=== PATIENT | female | born 1980 | race African-American/Black ===

== ENCOUNTER 2016-11-28 18:44 | Emergency (ER) | payer OTHER, MEDICAID ==
[~2016-11-28] VITALS: Ht 162.6 cm; Wt 82.0 kg
[~2016-11-28 18:44] MED LIST: FLAG500T PO; NAPR-576 PO
[2016-11-28 18:46] VITALS: BP 134/75; PULSE 96; RESP 14; TEMP 98.4; O2SAT 98
[2016-11-28] MEDS ORDERED: ACETAMINOPHEN/HYDROcodone 325 MG/5 MG TAB PO ONE (19:30)
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
--- NOTE | 2016-11-28 19:59 | RADRPT ---
EXAM DATE/TIME: 11/28/2016 19:42 [facility] COMPARISON: No previous studies available for comparison. INDICATIONS : Knee pain, NURSING HOME. MEDICAL HISTORY : None. SURGICAL HISTORY : None. ENCOUNTER: Initial ACUITY: 1 day PAIN SCORE: 0/10 LOCATION: Left knee FINDINGS: Four view examination of the left knee demonstrates no evidence of fracture or dislocation. Bony min eralization is normal. The articular surfaces are intact. Soft tissue swelling. The suprapatellar s oft tissues have a normal configuration. CONCLUSION: No acute fracture. Jeremy Carreon MD on November 28, 2016 at 19:57 Board Certified Radiologist. This report was verified electronically.
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
[2016-11-28] MEDS ORDERED: CYCL1TAB29 PO (20:08)
[2016-11-28] MEDS ORDERED: TRAM50TA PO (20:08)
== END 2016-11-28 21:05 | disposition home or self-care (01) ==
LOC: NEPK 18:44
DX: S63.501A Unspecified sprain of right wrist, initial encounter (principal); S80.02XA Contusion of left knee, initial encounter; V49.49XA Driver injured in collision with other motor vehicles in traffic accident, initial encounter; Y92.414 Local residential or business street as the place of occurrence of the external cause
CPT/HCPCS: 73110; 73564; 99284; L3908

== ENCOUNTER → 2016-12-20 | Outpatient (CLI) | payer OTHER, MEDICAID ==
[~2016-12-20] MED LIST changes: +CYCL1TAB29 PO; +DEPO150I IM; -FLAG500T PO; -NAPR-576 PO; +TRAM50TA PO
[2016-12-20 10:56] LABS: AUTOMATED NEUTROPHIL # 2.9 TH/MM3 (1.8-7.7); BASOPHIL % 0.6 % (0.0-2.0); EOSINOPHIL # 0.1 TH/MM3 (0-0.4); EOSINOPHIL % 2.6 % (0.0-4.0); HEMATOCRIT 39.7 % (35.0-46.0); HEMO FLAGS DIFF FINAL; LYMPH % 33.5 % (9.0-44.0); LYMPHOCYTE # 1.7 TH/MM3 (1.0-4.8); MEAN CELL VOLUME 92.1 FL (80.0-100.0); MEAN CORPUSCULAR HGB CONC 33.7 % (32.0-36.0); MONO % 7.2 % (0.0-8.0); NEUT % 56.1 % (16.0-70.0); PLATELET COUNT 288 TH/MM3 (150-450); RED BLOOD COUNT 4.31 MIL/MM3 (4.00-5.30); RED CELL DISTRIBUTION WIDTH 13.2 % (11.6-17.2); WHITE BLOOD COUNT 5.2 TH/MM3 (4.0-11.0)
[2016-12-20 11:16] LABS: BLOOD, URINE SMALL (NEG); COMMENT (UR) CULT NOT INDICATED; CULTURE IF INDICATED CULT NOT INDICATED; GLUCOSE,URINE NEG (NEG); KETONE, URINE NEG (NEG); MUCUS URINE FEW /lpf (OCC); NITRITE,URINE NEG (NEG); URINE COLOR YELLOW (YELLW/STRAW)
[2016-12-20 12:06] LABS: ANION GAP 7 MEQ/L (5-15); BICARBONATE 24.7 MEQ/L (21.0-32.0); BLOOD UREA NITROGEN 11 MG/DL (7-18); CHLORIDE 107 MEQ/L (98-107); GLOMERULAR FILTRATION RATE 85 ML/MIN (>89); GLUCOSE,FASTING 85 MG/DL (74-99); POTASSIUM 4.2 MEQ/L (3.5-5.1); SODIUM (NA) 139 MEQ/L (136-145)
[2016-12-20 12:25] LABS: BHCG SCREEN QUALITATIVE LESS THAN 1 MIU/ML (0-5)
== END ==
LOC: CPRE 09:41
PROVIDERS: ATTEND Obstetrics & Gynecology
DX: Z01.812 Encounter for preprocedural laboratory examination (principal); R10.2 Pelvic and perineal pain; N92.0 Excessive and frequent menstruation with regular cycle
CPT/HCPCS: 36415; 80048; 81001; 84703; 85025

== ENCOUNTER 2016-12-25 06:09 | Observation (INO) | payer OTHER, MEDICAID ==
[~2016-12-25] VITALS: Ht 162.6 cm; Wt 83.7 kg
[2016-12-25] MEDS ORDERED: ceFAZolin 2 GM PREMIX 50 ML ONE (07:04)
[2016-12-25] MEDS ORDERED: ESTROGENS CONJUGATED VAG CREA 15 APPL/30 GM TUBE ONE (07:14)
[2016-12-25] MEDS ORDERED: BUPIVACAINE/EPINEPHRINE 0.25% 50 ML VIAL ONE (07:21)
[2016-12-25] MEDS ORDERED: fentaNYL CITRATE 250 MCG/5 ML AMP ONE (07:30)
[2016-12-25] MEDS ORDERED: ACETAMINOPHEN 1000 MG/100 ML VIAL IV ONE (07:30)
[2016-12-25] MEDS ORDERED: ceFAZolin 2 GM PREMIX 50 ML IV SCH (07:30)
[2016-12-25] MEDS ORDERED: SODIUM CHLORID 0.9% 500 ML IV PRN (07:30)
[2016-12-25] MEDS ORDERED: INSULIN HUMAN REGULAR 1,000 UNITS/10 ML VIAL SQ PRN (07:30)
[2016-12-25] MEDS ORDERED: LACTATED RINGER'S 1000 ML IV PRN (07:30)
[2016-12-25] MEDS ORDERED: HYDROmorphone HCL PF 2 MG/ML VIAL ONE (07:30)
[2016-12-25] MEDS ORDERED: POVIDONE IODINE 5% (ANTISEPSIS KIT) 4 APPLICATIONS EACH NARE PRN (07:30)
[2016-12-25] MEDS ORDERED: CHLORHEXIDINE GLUCONATE 2 % 1 PACK (2 CLOTHS) TOPICAL PRN (07:30)
[2016-12-25] MEDS ORDERED: METOPROLOL TARTRATE 25 MG TAB PO PRN (07:30)
[2016-12-25] MEDS ORDERED: MIDAZOLAM HCL 2 MG/2 ML VIAL ONE (07:30)
[2016-12-25] MEDS ORDERED: ONDANSETRON ODT 4 MG TAB PO PRN (11:15)
[2016-12-25] MEDS ORDERED: ZOLPIDEM TARTRATE 5 MG TAB PO PRN (11:15)
[2016-12-25] MEDS ORDERED: oxyCODONE/ACETAMINOPHEN 5 MG/325 MG TAB PO PRN (11:15)
[2016-12-25] MEDS ORDERED: DO NOT ADM ANY ANTICOAGULANT DRUGS PRN (11:15)
[2016-12-25] MEDS ORDERED: ONDANSETRON HCL 4 MG/2 ML VIAL IVP PRN (11:15)
[2016-12-25] MEDS ORDERED: diphenhydrAMINE HCL 25 MG CAP PO PRN (11:15)
[2016-12-25] MEDS ORDERED: SODIUM CHLORIDE 0.9% FLUSH 10 ML FLUSH IV FLUSH PRN (11:15)
--- NOTE | 2016-12-25 11:23 | HHI.PR ---
Immediate Post Op Note Procedure Date: Dec 25, 2016 Pre Op Diagnosis: (1) Menorrhagia (2) Dysmenorrhea (3) Chronic pelvic pain in female Post Op Diagnosis: (1) Fibroids (2) Pelvic adhesive disease (3) Chronic pelvic pain in female (4) Dysmenorrhea (5) Menorrhagia Surgeon: Maria Esther Polo MD Administrative Support Assistant(s): Renata Domínguez MD Procedure: EUA, LAVH, Bilateral salpingectomy, right oophorectomy, lysis of adhesions. Findings: Adhesion of omentum to anterior abdominal wall. Adhesion of peritoneum superior to bladder to the mid-lower uterine segment. Right round ligament hernia. left fundal intramural fibroid, bulky uterus with appearance of adenomyosis. Enlarged ovaries, appearance of pcos. Bilateral tubes with evidence of prior ligation. Appendix and liver edge normal in appearance. Complications: none Specimen(s) removed: bilateral tubes, right ovary, uterus and cervix Estimated blood loss: 400ml Anesthesia: General Drains: None Fluids: 1500ml IVF Patient to: PACU Patient Condition: Good Maria Esther Polo MD Dec 25, 2016 11:23
[2016-12-25] MEDS: LACTATED RINGER'S 1000 ML INJ 1,000 ML IV SCH (12:00)
[2016-12-25] MEDS ORDERED: NEOSTIGMINE 3 MG/3 ML SYR IV ONE (12:00)
[2016-12-25] MEDS ORDERED: PROPOFOL 200 MG/20 ML AMP IV ONE (12:00)
[2016-12-25] MEDS ORDERED: LACTATED RINGER'S 1000 ML INJ 2,000 ML IV ONE (12:00)
[2016-12-25] MEDS ORDERED: ONDANSETRON HCL 4 MG/2 ML VIAL IV PUSH ONE (12:00)
[2016-12-25] MEDS ORDERED: *HYDROmorphone PF 1 MG VIAL PERIprocedural Use ONLY ONE (12:31)
[2016-12-25] MEDS: KETOROLAC TROMETHAMINE 30 MG/ML (IVP) VIAL IVP SCH ×2 (16:26→20:34)
[2016-12-25] MEDS: DOCUSATE SODIUM 100 MG CAP PO SCH ×2 (16:28→20:33)
[2016-12-25 16:46] VITALS: BP 108/67; PULSE 56; RESP 20; TEMP 95.9; O2SAT 100
[2016-12-25 20:00] VITALS: BP 119/72; PULSE 100; RESP 18; TEMP 96.3; O2SAT 100
[2016-12-25] MEDS: SODIUM CHLORIDE 0.9% FLUSH 10 ML FLUSH IV FLUSH SCH (20:36)
[2016-12-26] VITALS: BP 110/65; PULSE 63; RESP 16; TEMP 98.1; O2SAT 100
[2016-12-26] MEDS: oxyCODONE/ACETAMINOPHEN 5 MG/325 MG TAB PO PRN ×3 (00:27→10:54)
[2016-12-26] MEDS: LACTATED RINGER'S 1000 ML INJ 1,000 ML IV SCH (01:03)
[2016-12-26] MEDS: KETOROLAC TROMETHAMINE 30 MG/ML (IVP) VIAL IVP SCH ×2 (02:04→08:40)
--- NOTE | 2016-12-26 07:12 | MP ---
cc: MARIA ESTHER POLO MD DATE OF SURGERY 12/25/2016 PREOPERATIVE DIAGNOSIS Menorrhagia, dysmenorrhea, likely adenomyosis, dyspareunia. POSTOPERATIVE DIAGNOSIS Menorrhagia, dysmenorrhea, likely adenomyosis, fibroids plus adhesive disease, hernia of right round ligament. PROCEDURE PERFORMED Exam under anesthesia, laparoscopically-assisted vaginal hysterectomy, bilateral salpingectomy, right oophorectomy, lysis of adhesions. SURGEON Maria Esther Polo MD DROP WIRER Renata Domínguez MD ANESTHESIA General ESTIMATED BLOOD LOSS 400 mL IV FLUIDS 200 mL of lactated Ringer's URINE OUTPUT 500 mL PROPHYLACTIC ANTIBIOTICS 2 grams IV given incision. DVT PROPHYLAXIS SCD's to bilateral extremities INTRAOPERATIVE FINDINGS Adhesions of omentum to the anterior abdominal wall, adhesions of peritoneum superior to bladder to mid lower uterine segment, hernia of the right round ligamet; uterus appearace of adenomyosis as it was bulky and a left fundal subserosal fibroid, bilateral ovaries enlarge with the appearance of PCOS, bilateral tubes with evidence of prior salpingectomy. Appendix and liver edge appeared within normal limits. SPECIMENS Bilateral tubes, right ovary, uterus, and cervix. DISPOSITION The patient sent to PACU in stable condition. COMPLICATIONS None COUNTS Correct x3 PROCEDURE IN DETAIL After reviewing informed consent, the patient was taken to the operating room where general anesthesia was administered without complication. The patient was placed in the dorsal lithotomy position in [facility][note 3]y cane stirrups. The abdomen and perineum were prepped and draped in a normal sterile fashion. Exam under anesthesia was performed. The uterus was approximately 9 cm in length, see Intraoperative findings. A Stoner was placed under sterile conditions. A bivalve speculum was placed in the vagina. A single-tooth site was placed on the anterior lip of the cervix and a Hulka uterine manipulator was placed. The tenaculum was removed. The bivalve speculum was removed, gloves were changed. Attention was directed to the abdomen. Marcaine quarter percent with epinephrine was injected in the umbilical fold. A 5-mm incision was made with a scalpel. Direct visual entry was made while tenting the abdomen. Abdominal placement was confirmed. The abdomen was insufflated. Left and right lower quadrant accessory ports were placed 2 cm superomedial to the anterior superior iliac spines. The omental adhesions on the abdominal wall were taken down with the harmonic HD. Abdominal survey was performed. See intraoperative findings. The left round ligament was transected with the Harmonic. The anterior broad ligament was from the posterior broad ligament leaf with harmonic and taken down in a medial caudal fashion to what appeared to be the bladder flap. Inspection of this area noted that this was an adhesive band between the anterior abdominal wall peritoneum superior to the bladder to the mid lower uterine segment portion. This adhesion was taken down across the uterus. The broad ligament anterior leaflet was once again developed in a medial caudal fashion to create a true bladder flap. The right round ligament was transected. The anterior leaf of the broad ligament was taken down in a medial caudal fashion. The bladder flap was fully developed. The left fallopian tube was transected with the Harmonic. The right infundibulopelvic ligament was transected with the Harmonic.Serial bites were taken along the lateral aspect of the uterus until reaching the level of the uterine artery. The uterine arteries were hydrodessicated. At this point, the laparoscopic tools were removed. The abdomen was desufflated. Attention was turned to the vagina. Retractors were placed in the vagina. The [employer] uterine manipulator was removed. The single toothed tenaculum was placed on the anterior lip of the cervix. The cervix was circumferentially injected with Marcaine quarter percent with epinephrine and a Bovie was used to circumferentially incise the cervix. The anterior colpotomy was performed with Metzenbaum scissors. A Gina was placed anteriorly to lift the bladder and protect the bladder. A posterior colpotomy was performed with Tubbs scissors. The peritoneum was tied to the posterior vaginal cuff. A long weighted speculum was placed in the posterior colpotomy. A hysterectomy clamp was placed around the uterosacral ligament. It was clamped, cut and suture ligated with a fixation stitch bilaterally. Two further bites were taken with hysterectomy clamps bilaterally to achieve delivery of the specimen. The pedicle on the right side was oozing_, this was reinforced and a suture with 0 Vicryl. The posterior cuff and the peritoneum were brought together with a 0 Vicryl in a running locked fashion. After hemostasis was ensured, the cuff was closed in a vertical running fashion with 0 Vicryl. The vagina was irrigated and suctioned and hemostasis was noted. A laparoscopic survey was performed. The abdomen was irrigated and suction. Good hemostasis was noted. Leatha was used at all pedicle bases. Pneumo was removed. Five valsalva breaths were given before the trocars were removed. The skin was closed with 3-0 Monocryl and Steri-Strips were placed. The patient was placed in a dorsal supine position. Anesthesia was reversed without complication. The patient taken to PACU in stable condition. Maria Esther Polo MD PE/GÓMEZ /5:28 PM /6:32 AM [email or web address]
[2016-12-26 08:00] VITALS: BP 109/69; PULSE 60; RESP 18; TEMP 97.3; O2SAT 98
[2016-12-26 08:20] LABS: AUTOMATED NEUTROPHIL # 4.8 TH/MM3 (1.8-7.7); BASOPHIL % 0.4 % (0.0-2.0); EOSINOPHIL # 0.1 TH/MM3 (0-0.4); EOSINOPHIL % 0.8 % (0.0-4.0); HEMATOCRIT 29.8 % (35.0-46.0); HEMO FLAGS DIFF FINAL; LYMPHOCYTE # 1.9 TH/MM3 (1.0-4.8); MEAN CELL VOLUME 90.8 FL (80.0-100.0); MEAN CORPUSCULAR HEMOGLOBIN 31.3 PG (27.0-34.0); MEAN CORPUSCULAR HGB CONC 34.4 % (32.0-36.0); MONO % 5.5 % (0.0-8.0); NEUT % 66.3 % (16.0-70.0); PLATELET COUNT 233 TH/MM3 (150-450); RED BLOOD COUNT 3.28 MIL/MM3 (4.00-5.30); RED CELL DISTRIBUTION WIDTH 12.7 % (11.6-17.2); WHITE BLOOD COUNT 7.2 TH/MM3 (4.0-11.0)
[2016-12-26] MEDS: DOCUSATE SODIUM 100 MG CAP PO SCH (08:40)
[2016-12-26] MEDS: SODIUM CHLORIDE 0.9% FLUSH 10 ML FLUSH IV FLUSH SCH (08:41)
--- NOTE | 2016-12-26 09:03 | HHI.PR ---
Subjective Remarks Doing well, pain is well controlled, eating well. Passing flatus. Able to void Objective Vital Signs Vital Signs Date Time Temp Pulse Resp B/P (MAP) Pulse Ox O2 Delivery O2 Flow Rate FiO2 12/26/16 08:00 97.3 60 18 109/69 (82) 98 12/26/16 00:00 98.1 63 16 110/65 (80) 100 12/25/16 21:08 Nasal Cannula 2.00 12/25/16 20:00 96.3 100 18 119/72 (88) 100 12/25/16 16:46 95.9 56 20 108/67 (81) 100 12/25/16 13:15 97.9 74 16 109/64 (79) 96 Nasal Cannula 2 12/25/16 13:01 15 12/25/16 13:00 71 16 107/65 (79) 96 Nasal Cannula 2 12/25/16 12:45 70 16 105/63 (77) 95 Nasal Cannula 2 12/25/16 12:30 97.6 72 16 104/62 (76) 95 Nasal Cannula 2 12/25/16 12:15 70 15 107/62 (77) 94 Nasal Cannula 2 12/25/16 12:00 71 15 111/69 (83) 94 Nasal Cannula 2 12/25/16 11:45 73 15 116/62 (80) 100 Nasal Cannula 3 12/25/16 11:30 72 15 110/59 (76) 99 Nasal Cannula 3 12/25/16 11:15 98.3 77 15 115/62 (79) 98 Nasal Cannula 3 I/O 12/25/16 12/25/16 12/25/16 12/26/16 12/26/16 12/26/16 07:00 15:00 23:00 07:00 15:00 23:00 Intake Total 3275 ml 1269 ml Output Total 1150 ml 350 ml 225 ml 400 ml Balance 2125 ml -350 ml 1044 ml -400 ml Intake IV Total 1775 ml 1269 ml Other 1500 ml Output Urine Total 750 ml 350 ml 225 ml 400 ml Estimated Blood Loss 400 ml Result Diagram: 12/26/16 0746 Objective Remarks Chest is clear, regular rate and rhythm. Abdomen is soft and non-distended. LSC Incision is clean and dry. no bleeding Ext no CCE. A/P Assessment and Plan Post Op Day 1 Doing well Home today and return to office in two weeks. Maria Esther Polo MD Dec 26, 2016 09:03
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
[2016-12-26 10:00] VITALS: O2SAT 100
[2016-12-26] MEDS ORDERED: IBUPROFEN 600 MG TAB PO PRN (11:15)
[2016-12-26 12:00] VITALS: BP 110/67; PULSE 66; RESP 18; TEMP 98.1; O2SAT 98
== END 2016-12-26 15:20 | disposition home or self-care (01) ==
LOC: HSDC 06:09 → HSDI 11:12 → HOCA 13:28
PROVIDERS: ADMIT Obstetrics & Gynecology; ATTEND Obstetrics & Gynecology
DX: D25.9 Leiomyoma of uterus, unspecified (principal); N80.0 Endometriosis of uterus; N92.0 Excessive and frequent menstruation with regular cycle; N94.10 Unspecified dyspareunia; N73.6 Female pelvic peritoneal adhesions (postinfective); G89.29 Other chronic pain; R10.2 Pelvic and perineal pain
CPT/HCPCS: 00840; 58552; 85025; 86850; 86900; 86901; 88307; 94150; G0378; J0131; J0690; J1170; J1885; J2250; J2405; J2710; J3010; J7120

== ENCOUNTER 2017-06-04 10:15 | Emergency (ER) | payer MEDICAID, OTHER ==
[~2017-06-04] VITALS: Ht 162.6 cm; Wt 85.0 kg
[~2017-06-04 10:15] MED LIST changes: +CYCL10TA PO; -CYCL1TAB29 PO; -DEPO150I IM; -TRAM50TA PO
[2017-06-04 10:18] VITALS: BP 138/70; PULSE 84; RESP 16; TEMP 98; O2SAT 100
[2017-06-04] MEDS ORDERED: METR-1 PO (12:09)
--- NOTE | 2017-06-04 12:09 | PD ---
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 She has been sexually active with one partner for the past several years. She denies any fevers or chills. She's had bacterial infections in the past. PFSH Past Medical History Asthma: No Blood Disorders: No Anxiety: No Depression: No Heart Rhythm Problems: No Cancer: No Cardiovascular Problems: No High Cholesterol: No Chemotherapy: No Chest Pain: Yes (SINCE SHE WAS CHILD ) Congestive Heart Failure: No COPD: No Diabetes: No Diminished Hearing: No Endocrine: No Genitourinary: No Hepatitis: No Hiatal Hernia: No Immune Disorder: No Musculoskeletal: No Neurologic: No Psychiatric: No Reproductive: Yes (ENDOMETRIOSIS) Respiratory: No Migraines: Yes Radiation Therapy: No Sleep Apnea: No Thyroid Disease: No Ulcer: Yes ?: Not Menopausal: Yes : 2 Para: 2 Miscarriage: 2 Tubal Ligation: Yes Past Surgical History Abdominal Surgery: No AICD: No Cardiac Surgery: No Section: Yes (X2) Ear Surgery: No Endocrine Surgery: No Eye Surgery: No Genitourinary Surgery: No Gynecologic Surgery: Yes (C SECTION X2, TUBAL) Hysterectomy: Yes ( DECEMBER 2016) Joint Replacement: No Oral Surgery: No Pacemaker: No Thoracic Surgery: No Other Surgery: Yes Social History Alcohol Use: Yes (occassionally ) Tobacco Use: Yes (denies) Substance Use: No Allergies-Medications (Allergen,Severity, Reaction): Coded Allergies: insect venom (Unverified Allergy, Severe, SWELLING, 12/19/16) sulfamethoxazole (Unverified Allergy, Severe, HIVES, 12/19/16) trimethoprim (Unverified Allergy, Severe, HIVES, 12/19/16) morphine (Unverified Adverse Reaction, Unknown, FLUSHING, NAUSEA, 12/19/16) Reported Meds & Prescriptions Reported Meds & Active Scripts Active No Active Prescriptions or Reported Medications Review of Systems General / Constitutional: No: Fever, Chills Gastrointestinal: No: Nausea, Vomiting, Abdominal Pain Physical Exam Narrative GENERAL:Well appearing, no acute distress SKIN: Focused skin assessment warm and dry. HEAD: Atraumatic. Normocephalic. EYES: Pupils equal and round. No injection or drainage. ENT: Moist mucous membranes NECK: Trachea midline. CARDIOVASCULAR: Regular rate and rhythm. No murmur appreciated. RESPIRATORY: Clear to auscultation. Breath sounds equal bilaterally. GASTROINTESTINAL: Abdomen soft, non-tender, nondistended. SPECIALIZED LANGUAGE INSTRUCTOR: White discharge in the vault with no cervical motion tenderness or adnexal tenderness. MUSCULOSKELETAL: No obvious deformities. NEUROLOGICAL: Awake and alert. No obvious cranial nerve deficits. Moving all extremities. PSYCHIATRIC: Appropriate mood and affect; insight and judgment normal. Data Data Last Documented VS Vital Signs Date Time Temp Pulse Resp B/P (MAP) Pulse Ox O2 Delivery O2 Flow Rate FiO2 06/04/17 10:18 98.0 84 16 138/70 (92) 100 Room Air Orders Orders Wet Prep Profile (06/04/17 11:16) Gc And Chlamydia Pcr (06/04/17 11:16) Labs Laboratory Tests Test 06/04/17 11:20 Clue Cells (Wet Prep) NONE SEEN Vaginal Trichomonas (Wet Prep) NONE SEEN Vaginal Yeast (Wet Prep) NONE SEEN MDM Medical Decision Making Medical Screen Exam Complete: Yes Emergency Medical Condition: Yes Differential Diagnosis Bacterial vaginosis, Trichomonas, yeast infection, gonorrhea, chlamydia Narrative Course This is a 36 year old female who presents to the emergency department with some vaginal itching and discharge. On exam she appears to have bacterial vaginosis. Wet prep was negative however given his appearance on exam I think she would benefit from Flagyl. Diagnosis Primary Impression: Bacterial vaginosis Patient Instructions: General Instructions Additional Instructions: If you develop fever, chills, severe abdominal pain, persistent vomiting or inability to eat return to the emergency department. Your pelvic exam today did not include a Pap smear. It is important to followup with a honey processor on a yearly basis to be tested for cervical cancer as we do not do that from the emergency department. If there is a concern that you have sexually transmitted disease, your partner should be tested. You should followup with your honey processor or with the health department to get tested for other sexually transmitted diseases like HIV and syphilis, as we do not test for these in the emergency department Med/Other Pt SpecificInfo: Prescription(s) given Scripts Metronidazole (Flagyl) 500 Mg Tab 500 MG PO BID for Infection for 7 Days, #14 TAB 0 Refills Prov: Mita Mccain MD 06/04/17 Disposition: 01 DISCHARGE HOME Condition: Stable Mita Mccain MD Jun 04, 2017 12:09
== END 2017-06-04 12:25 | disposition home or self-care (01) ==
LOC: NEPD 10:15
DX: N76.0 Acute vaginitis (principal); B96.89 Other specified bacterial agents as the cause of diseases classified elsewhere; Z88.5 Allergy status to narcotic agent; Z88.2 Allergy status to sulfonamides; Z88.8 Allergy status to other drugs, medicaments and biological substances; Z91.038 Other insect allergy status
CPT/HCPCS: 87210; 87491; 87591; 99284